=== PATIENT | male | born 1985 | race Caucasian/White ===

== ENCOUNTER 2017-08-26 20:17 | Emergency (ER) | payer SELFPAY ==
[2017-08-26 21:34] LABS: BASOPHILS 0.2 % (0-2); HEMATOCRIT 39.9 % (42.0-54.0); HEMOGLOBIN 13.7 g/dL (13.5-17.5); IMMATURE GRANULOCYTES 0.2 % (0-5); LYMPHOCYTES 18.8 % (15-50); MCH 31.4 pg (26.0-34.0); MCHC 34.3 g/dL (31.0-37.0); MCV 91.5 fL (80.0-100.0); MONOCYTES 10.1 % (2-11); NEUTROPHILS 69.7 % (40-80); PLATELET COUNT 233 10x3/uL (130-400); RBC 4.36 10x6/uL (4.20-6.10); RDW 13.6 % (11.5-14.5); WBC 10.4 10x3/uL (4.8-10.8)
== END 2017-08-26 22:30 | disposition left against medical advice (07) ==
LOC: D.ER 20:17
PROVIDERS: Family Medicine
DX: R51 Headache (principal)

== ENCOUNTER 2017-11-13 11:18 | Emergency (ER) | payer MEDICAID ==
[~2017-11-13] VITALS: Ht 177.8 cm; Wt 72.7 kg
[2017-11-13 11:41] VITALS: BP 110/68; Ht 177.8 cm; Wt 72.7 kg
== END 2017-11-13 15:06 | disposition home or self-care (01) ==
LOC: D.ER 11:18
DX: L02.91 Cutaneous abscess, unspecified (principal)

== ENCOUNTER 2018-01-05 05:58 | Emergency (ER) | payer MEDICAID ==
[~2018-01-05] VITALS: Ht 177.8 cm; Wt 72.7 kg
[2018-01-05 06:03] VITALS: Ht 177.8 cm; Wt 72.7 kg
[2018-01-05] MEDS ORDERED: CLEOCIN HCL300 MG PO (06:29)
[2018-01-05] MEDS ORDERED: HYDROCODON-ACE1 EAC7 PO (06:30)
[2018-01-05 06:47] VITALS: BP 121/77
[2018-01-06] MEDS ORDERED: TORADOL10 MG PO (15:59)
== END 2018-01-05 06:47 | disposition home or self-care (01) ==
LOC: D.ER 05:58
DX: K11.5 Sialolithiasis (principal); H93.12 Tinnitus, left ear; F17.200 Nicotine dependence, unspecified, uncomplicated

== ENCOUNTER 2018-01-06 12:28 | Emergency (ER) | payer MEDICAID ==
[~2018-01-06] VITALS: Ht 177.8 cm; Wt 72.7 kg
[~2018-01-06 12:28] MED LIST: CLEOCIN HCL300 MG PO; HYDROCODON-ACE1 EAC7 PO
[2018-01-06 12:55] VITALS: Ht 177.8 cm; Wt 72.7 kg
[2018-01-06 13:25] LABS: BASOPHILS 0.2 % (0-2); EOSINOPHILS 2.9 % (0-7); HEMATOCRIT 42.7 % (42.0-54.0); HEMOGLOBIN 14.2 g/dL (13.5-17.5); IMMATURE GRANULOCYTES 0.1 % (0-5); LYMPHOCYTES 29.3 % (15-50); MCH 30.9 pg (26.0-34.0); MCHC 33.3 g/dL (31.0-37.0); MCV 92.8 fL (80.0-100.0); MEAN PLATELET VOLUME 9.7 fL (7.4-10.4); MONOCYTES 11.3 % (2-11); NEUTROPHILS 56.2 % (40-80); PLATELET COUNT 237 10x3/uL (130-400); RDW 13.3 % (11.5-14.5); WBC 8.7 10x3/uL (4.8-10.8)
[2018-01-06 13:37] LABS: ALBUMIN 3.7 g/dL (3.4-5.0); ALKALINE PHOSPHATASE 68 U/L (46-116); ALT (SGPT) 134 U/L (10-68); BILIRUBIN - TOTAL 0.27 mg/dL (0.2-1.3); CALC OSMOLALITY 271 mosm/kg (275-300); CALCIUM 9.1 mg/dL (8.5-10.1); CARBON DIOXIDE 33.1 mmol/L (21.0-32.0); CHLORIDE - SERUM 100 mmol/L (98-107); CREATININE - SERUM 0.9 mg/dL (0.6-1.3); GLUCOSE 92 mg/dL (74-106); POTASSIUM - SERUM 3.8 mmol/L (3.5-5.1); PROTEIN - SERUM 7.9 g/dL (6.4-8.2); SODIUM 137 mmol/L (136-145); UREA NITROGEN 7 mg/dL (7-18); eGFR NON AFRICAN AMERICAN > 90 mL/min (90-120)
[2018-01-06] MEDS ORDERED: TORADOL10 MG PO (15:59)
[2018-01-06 17:26] VITALS: BP 142/86
== END 2018-01-06 17:23 | disposition home or self-care (01) ==
LOC: D.ER 12:28
PROVIDERS: Family Medicine
DX: K04.7 Periapical abscess without sinus (principal); M54.2 Cervicalgia

== ENCOUNTER 2019-04-29 16:21 | Inpatient (IN) | payer SELFPAY ==
[~2019-04-29] VITALS: Ht 177.8 cm; Wt 75.0 kg
[~2019-04-29 16:21] MED LIST changes: +TORADOL10 MG PO
[2019-04-29 17:05] LABS: BASOPHILS 0.2 % (0-2); EOSINOPHILS 0.2 % (0-7); HEMOGLOBIN 15.9 g/dL (13.5-17.5); IMMATURE GRANULOCYTES 0.8 % (0-5); LYMPHOCYTES 12.8 % (15-50); MCH 30.9 pg (26.0-34.0); MCHC 33.8 g/dL (31.0-37.0); MCV 91.4 fL (80.0-100.0); MEAN PLATELET VOLUME 9.3 fL (7.4-10.4); MONOCYTES 7.4 % (2-11); NEUTROPHILS 78.6 % (40-80); PLATELET COUNT 239 10x3/uL (130-400); RBC 5.14 10x6/uL (4.20-6.10); RDW 14.8 % (11.5-14.5); WBC 14.4 10x3/uL (4.8-10.8)
[2019-04-29 17:19] LABS: ANION GAP 12.4 mmol/L (8-16); CALCIUM 9.1 mg/dL (8.5-10.1); CARBON DIOXIDE 26.3 mmol/L (21.0-32.0); CREATININE - SERUM 1.4 mg/dL (0.6-1.3); POTASSIUM - SERUM 3.7 mmol/L (3.5-5.1)
[2019-04-29 17:24] LABS: APPEARANCE CLEAR (CLEAR); COLOR YELLOW (YELLOW); GLUCOSE NEGATIVE (NEGATIVE); KETONE MODERATE mg/dL (NEGATIVE); NITRITE NEGATIVE (NEGATIVE); PROTEIN 1+ mg/dL (NEGATIVE)
[2019-04-29 17:25] LABS: BILIRUBIN NEGATIVE (NEGATIVE)
[2019-04-29 17:26] LABS: ALBUMIN 3.5 g/dL (3.4-5.0); BILIRUBIN - TOTAL 0.33 mg/dL (0.2-1.3); PROTEIN - SERUM 8.1 g/dL (6.4-8.2)
[2019-04-29 18:24] LABS: INR 1.25 (0.85-1.17); PROTIME 15.2 SECONDS (11.6-15.0)
[2019-04-29 18:25] LABS: APTT 44.8 SECONDS (22.8-39.4)
[2019-04-29 18:38] VITALS: BP 114/60
[2019-04-29 18:39] LABS: CREATINE KINASE 103 UL (21-232)
[2019-04-29 18:48] LABS: TROPONIN-I < 0.017 ng/mL (0.000-0.060)
--- NOTE | 2019-04-29 19:13 | NUR ---
PT RETURNED FROM RADIOLOGY.
[2019-04-29 19:30] VITALS: BP 111/62
--- NOTE | 2019-04-29 19:54 | NUR ---
PT TO RADIOLOGY
[2019-04-29 22:36] VITALS: BP 109/71; Ht 177.8 cm; Wt 75.0 kg
[2019-04-30 06:15] LABS: BASOPHILS 0.2 % (0-2); EOSINOPHILS 0.2 % (0-7); HEMATOCRIT 41.9 % (42.0-54.0); IMMATURE GRANULOCYTES 0.2 % (0-5); LYMPHOCYTES 17.9 % (15-50); MCH 30.5 pg (26.0-34.0); MCHC 33.4 g/dL (31.0-37.0); MCV 91.3 fL (80.0-100.0); MONOCYTES 10.1 % (2-11); NEUTROPHILS 71.4 % (40-80); PLATELET COUNT 240 10x3/uL (130-400); RBC 4.59 10x6/uL (4.20-6.10); WBC 12.8 10x3/uL (4.8-10.8)
[2019-04-30 06:47] LABS: ANION GAP 9.7 mmol/L (8-16); CALCIUM 7.9 mg/dL (8.5-10.1); CARBON DIOXIDE 27.1 mmol/L (21.0-32.0); CREATININE - SERUM 1.2 mg/dL (0.6-1.3); MAGNESIUM - SERUM 1.9 mg/dL (1.8-2.4); PHOSPHOROUS 2.4 mg/dL (2.5-4.9); POTASSIUM - SERUM 3.8 mmol/L (3.5-5.1)
[2019-04-30 08:46] VITALS: BP 140/85
--- NOTE | 2019-04-30 10:26 | NUR ---
MEDCIATED WITH MORPHINE AT THIS TIME FOR C/O PAIN RATING 7/10 ON PAIN SCALE. C C/L IN REACH AT BEDSIDE.
[2019-04-30 12:38] VITALS: BP 126/79
[2019-04-30 14:49] VITALS: BP 123/76
[2019-04-30 14:57] LABS: UDS - AMPHET POSITIVE QUAL (NEGATIVE); UDS - BARB NEGATIVE QUAL (NEGATIVE); UDS - BENZO NEGATIVE QUAL (NEGATIVE); UDS - COCAINE NEGATIVE QUAL (NEGATIVE); UDS - OPIATE POSITIVE QUAL (NEGATIVE); UDS - PCP NEGATIVE QUAL (NEGATIVE); UDS - THC POSITIVE QUAL (NEGATIVE)
--- NOTE | 2019-04-30 17:56 | NUR ---
I have reviewed this patient and I concur with the Shift Assessment completed by the Licensed Practical Nurse today this shift.
[2019-04-30 20:00] VITALS: BP 138/67
[2019-05-01] VITALS: BP 157/76
[2019-05-01 04:00] VITALS: BP 107/70
--- NOTE | 2019-05-01 06:37 | NUR ---
ASSESSED AT THE BEGINNING OF THE SHIFT. HE IS ALERT AND ORIENTED, ABLE TO VERBALIZE NEEDS. AT THAT TIME HE WAS C/O SEVERE PAIN AND BURNING IN HIS THROAT. HE WAS GIVEN PAIN AND NAUSEA MEDS AT THAT TIME WHICH SEEMS TO TAKE CARE OF IT. GIRL FRIEND BROUGHT FOOD AND THEN DURING THE NIGHT SHE SLEP IN THE BED AND WAS THEN RELOCATED TO THE CHAIR. NO COMPLAINTS OF THIS TIME THIS MORNING.
[2019-05-01 07:21] LABS: CALC OSMOLALITY 279 mosm/kg (275-300); CALCIUM 8.1 mg/dL (8.5-10.1); CARBON DIOXIDE 28.2 mmol/L (21.0-32.0); CHLORIDE - SERUM 106 mmol/L (98-107); CREATININE - SERUM 1.1 mg/dL (0.6-1.3); GLUCOSE 82 mg/dL (74-106); MAGNESIUM - SERUM 2.2 mg/dL (1.8-2.4); SODIUM 142 mmol/L (136-145); UREA NITROGEN 6 mg/dL (7-18); VANCOMYCIN - TROUGH 8.2 ug/mL (10.0-20.0); eGFR NON AFRICAN AMERICAN 81 mL/min (90-120)
[2019-05-01 07:23] LABS: PHOSPHOROUS 3.5 mg/dL (2.5-4.9); POTASSIUM - SERUM 3.2 mmol/L (3.5-5.1)
[2019-05-01 07:51] LABS: HEMATOCRIT 39.4 % (42.0-54.0); HEMOGLOBIN 13.5 g/dL (13.5-17.5); MCHC 34.3 g/dL (31.0-37.0); MCV 90.4 fL (80.0-100.0); NEUTROPHILS 52.5 % (40-80); PLATELET COUNT 203 10x3/uL (130-400); RBC 4.36 10x6/uL (4.20-6.10); RDW 15.5 % (11.5-14.5)
[2019-05-01 07:52] LABS: WBC 7.4 10x3/uL (4.8-10.8)
[2019-05-01 08:30] VITALS: BP 134/83
[2019-05-01 12:53] VITALS: BP 125/83
--- NOTE | 2019-05-01 15:29 | MORECARE ---
CASE MANAGEMENT DISCHARGE SUMMARY PATIENT: LASHAWN MORELOS UNIT: [id number] ADM DATE: 04/29/19 AGE: 34 : 85 SEX: M ROOM/BED: D.2209 AUTHOR: MARY HOWARD PHYSICIAN: REFERRING PHYSICIAN: KAYLA DOUGHERTY MD DATE OF SERVICE: 05/01/19 Discharge Plan Patient Name: [facility]ASHAWN MORELOS [facility] [facility] 1985 Planned Disposition: Anticipated Discharge Date: Discharge Date: Expected LOS: Initial Reviewer: [email or web address] Initial Review Date: 05/01/2019 Generated: 05/01/19 4:28 pm Comments DCP- Discharge Planning Updated by [email or web address]: Nena Inman on 05/01/19 2:[address] Patient Name: LASHAWN MORELOS Admission Status: ER Accout number: [id number] Admission Date: 04-29-2019 : 1985 Admission Diagnosis: Attending: KAYLA DE LA CRUZ Current LOS: 2 Anticipated DC Date: Planned Disposition: Primary Insurance: UNINSURED DISCOUNT PLAN Discharge Planning Comments: CM ATTEMPTED TO MEET WITH PATIENT TWO DIFFERENT TIMES. PATIENT EXTREMELY DROWSY. CM WILL ATTEMPT TO ASSESS PATIENT AGAIN AT A LATER TIME. Manager Adobe: Nena Inman Patient Name: LASHAWN MORELOS Page [phone] at 1529 All edits/amendments must be made on the electronic document DICTATION DATE: 05/01/191527 BULL DRIVER: MELANIE 05/01/191527 RPT#: [id number] DC DATE: STATUS: ADM IN [facility] [address] [place] [address] END OF REPORT
--- NOTE | 2019-05-01 17:04 | NUR ---
I have reviewed this patient and I concur with the Shift Assessment completed by the Licensed Practical Nurse today this shift.
[2019-05-01 17:22] VITALS: BP 136/66
[2019-05-01 20:00] VITALS: BP 134/88
--- NOTE | 2019-05-02 01:49 | NUR ---
PT RESTING IN BED. NO SIGNS OF DISTRESS. BREATHING EVEN AND UNLABORED. RESITED IV LT UPPER ARM 20G ATTEMPTS X1. PT TOLERATED WELL. SKIN CLEAN DRY AND INTACT. BOWEL SOUNDS ACTIVE. NO LOWER LEG SWELLING PRESENT. WILL CONTINUE PLAN OF CARE. CALL LIGHT IN REACH. BED LOWERED AND LOCKED.
--- NOTE | 2019-05-02 03:56 | NUR ---
I have reviewed this patient and I concur with the Shift Assessment completed by the Licensed Practical Nurse today this shift.
[2019-05-02 04:00] VITALS: BP 143/86
[2019-05-02 07:54] LABS: BASOPHILS 0.4 % (0-2); EOSINOPHILS 3.7 % (0-7); HEMATOCRIT 42.9 % (42.0-54.0); HEMOGLOBIN 14.3 g/dL (13.5-17.5); IMMATURE GRANULOCYTES 0.1 % (0-5); LYMPHOCYTES 28.5 % (15-50); MCH 30.6 pg (26.0-34.0); MCHC 33.3 g/dL (31.0-37.0); MCV 91.7 fL (80.0-100.0); MEAN PLATELET VOLUME 9.8 fL (7.4-10.4); MONOCYTES 9.8 % (2-11); NEUTROPHILS 57.5 % (40-80); RBC 4.68 10x6/uL (4.20-6.10); RDW 15.3 % (11.5-14.5); WBC 7.8 10x3/uL (4.8-10.8)
[2019-05-02 07:55] LABS: PLATELET COUNT 275 10x3/uL (130-400)
[2019-05-02 08:19] VITALS: BP 120/89
[2019-05-02 08:23] LABS: CALC OSMOLALITY 282 mosm/kg (275-300); CALCIUM 8.3 mg/dL (8.5-10.1); CARBON DIOXIDE 27.6 mmol/L (21.0-32.0); CHLORIDE - SERUM 105 mmol/L (98-107); CREATININE - SERUM 0.9 mg/dL (0.6-1.3); GLUCOSE 90 mg/dL (74-106); PHOSPHOROUS 2.7 mg/dL (2.5-4.9); SODIUM 143 mmol/L (136-145); UREA NITROGEN 6 mg/dL (7-18); eGFR NON AFRICAN AMERICAN > 90 mL/min (90-120)
--- NOTE | 2019-05-02 09:17 | NUR ---
PT RESTING. RR EVEN AND UN LABORED. DENIES NEEDS OR PAIN AT THIS TIME. BED IN LOWEST POSITION. CALL LIGHT WITHIN REACH. WILL CONTINUE TO MONITOR.
--- NOTE | 2019-05-02 12:06 | NUR ---
PT AMBULATING IN HALLWAY WITH STEADY GAIT.
--- NOTE | 2019-05-02 12:09 | NUR ---
I have reviewed this patient and I concur with the Shift Assessment completed by the Licensed Practical Nurse today this shift.
[2019-05-02] MEDS ORDERED: MUCINEX600 MG PO (12:12)
[2019-05-02] MEDS ORDERED: TESSALON PERLE100 MG PO (12:12)
[2019-05-02] MEDS ORDERED: ZITHROMAX500 MG PO (12:13)
[2019-05-02] MEDS ORDERED: SINGULAIR10 MG PO (12:13)
[2019-05-02] MEDS ORDERED: LEVAQUIN750 MG PO (12:14)
[2019-05-02] MEDS ORDERED: ALBUTEROL SULF8.5 GM INH (12:14)
--- NOTE | 2019-05-02 13:11 | MORECARE ---
CASE MANAGEMENT DISCHARGE SUMMARY PATIENT: LASHAWN MORELOS UNIT: [id number] ADM DATE: 04/29/19 AGE: 34 : 85 SEX: M ROOM/BED: D.2209 AUTHOR: MARY HOWARD PHYSICIAN: REFERRING PHYSICIAN: KAYLA DOUGHERTY MD DATE OF SERVICE: 05/02/19 Discharge Plan Patient Name: LASHAWN MORELOS [facility] [facility] 1985 Planned Disposition: Anticipated Discharge Date: Discharge Date: Expected LOS: Initial Reviewer: [email or web address] Initial Review Date: 05/02/2019 Generated: 05/02/19 2:11 pm Comments DCP- Discharge Planning Updated by [email or web address]: Nena Inman on 05/01/19 2:[address] Patient Name: LASHAWN MORELOS Admission Status: ER Accout number: [id number] Admission Date: 04-29-2019 : 1985 Admission Diagnosis: Attending: KAYLA DE LA CRUZ Current LOS: 2 Anticipated DC Date: Planned Disposition: Primary Insurance: UNINSURED DISCOUNT PLAN Discharge Planning Comments: CM ATTEMPTED TO MEET WITH PATIENT TWO DIFFERENT TIMES. PATIENT EXTREMELY DROWSY. CM WILL ATTEMPT TO ASSESS PATIENT AGAIN AT A LATER TIME. Packaging Sales Representative: Nena Inman Last DP export: 05/01/19 2:29 Patient Name: LASHAWN MORELOS Page [phone] at 1311 All edits/amendments must be made on the electronic document DICTATION DATE: 05/02/19 1311 [employer]: MELANIE 05/02/19 1311 RPT#: [id number] DC DATE: STATUS: ADM IN [facility] [address] [place] [address] END OF REPORT
--- NOTE | 2019-05-02 13:18 | MORECARE ---
CASE MANAGEMENT DISCHARGE SUMMARY PATIENT: LASHAWN MORELOS UNIT: [id number] ADM DATE: 04/29/19 AGE: 34 : 85 SEX: M ROOM/BED: D.2209 AUTHOR: MARY HOWARD PHYSICIAN: REFERRING PHYSICIAN: KAYLA DOUGHERTY MD DATE OF SERVICE: 05/02/19 Discharge Plan Patient Name: LASHAWN MORELOS Facility: [facility]:[place] : 1985 Planned Disposition: Anticipated Discharge Date: Discharge Date: Expected LOS: Initial Reviewer: [email or web address] Initial Review Date: 05/02/2019 Generated: 05/02/19 2:18 pm Comments DCP- Discharge Planning Updated by [email or web address]: Nena Inman on 05/02/19 12:[address] Patient Name: LASHAWN MORELOS Admission Status: ER Accout number: [id number] Admission Date: 04-29-2019 : 1985 Admission Diagnosis:SEPSIS, UNSPECIFIED ORGANISM Attending: KAYLA DE LA CRUZ Current LOS: 3 Anticipated DC Date: Planned Disposition: Primary Insurance: UNINSURED DISCOUNT PLAN Discharge Planning Comments: CM met with patient at bedside after explaining CM role and obtaining verbal consent. CM discussed availability / needs of home health, REHAB and medical equipment. PATIENT PLANS TO DC TO HOME. I GAVE HIM A GOOD RX CARD TO HELP WITH LOWERING THE COST OF HIS PRESCRIPTIONS SINCE HE DOES NOT HAVE INSURANCE. PATIENT TO DC TODAY. Theatrical Agent: Nena Inman DCP- Discharge Planning Updated by [email or web address]: Nena Inman on 05/01/19 2:[address] Patient Name: LASHAWN MORELOS Admission Status: ER Accout number: [id number] Admission Date: 04-29-2019 : 1985 Admission Diagnosis: Attending: KAYLA DE LA CRUZ Current LOS: 2 Anticipated DC Date: Planned Disposition: Primary Insurance: UNINSURED DISCOUNT PLAN Discharge Planning Comments: CM ATTEMPTED TO MEET WITH PATIENT TWO DIFFERENT TIMES. PATIENT EXTREMELY DROWSY. CM WILL ATTEMPT TO ASSESS PATIENT AGAIN AT A LATER TIME. Theatrical Agent: Nena Inman Last DP export: 05/02/19 12:11 Patient Name: LASHAWN MORELOS Page [phone] at 1318 All edits/amendments must be made on the electronic document DICTATION DATE: 05/02/191316 AQUACULTURAL WORKER SUPERVISOR: MELANIE 05/02/191316 RPT#: [id number] DC DATE: STATUS: ADM IN [facility] [address] [place] [address] END OF REPORT
[2019-05-02 14:29] VITALS: BP 141/87
--- NOTE | 2019-05-02 14:57 | NUR ---
D/C INSTRUCTIONS REVIEWED. PT VERBALIZED UNDERSTANDING AND DENIES FURTHER QUESTIONS AT THIS TIME. IV D/C WITH CATHETER TIP INTACT. PT REFUSED WHEELCHAIR. LEFT WITH ALL BELONGINGS TO PERSONAL VEHICLE.
--- NOTE | 2019-05-02 15:26 | MORECARE ---
CASE MANAGEMENT DISCHARGE SUMMARY PATIENT: LASHAWN MORELOS UNIT: [id number] ADM DATE: 04/29/19 AGE: 34 : 85 SEX: M ROOM/BED: D.2209 AUTHOR: MARY HOWARD PHYSICIAN: REFERRING PHYSICIAN: KAYLA DOUGHERTY MD DATE OF SERVICE: 05/02/19 Discharge Plan Patient Name: LASHAWN MORELOS Facility: [facility]:[place] : 1985 Planned Disposition: Anticipated Discharge Date: Discharge Date: 05/02/2019 Expected LOS: Initial Reviewer: [email or web address] Initial Review Date: 05/02/2019 Generated: 05/02/19 4:26 pm Comments DCP- Discharge Planning Updated by [email or web address]: Nena Inman on 05/02/19 12:[address] Patient Name: LASHAWN MORELOS Admission Status: ER Accout number: [id number] Admission Date: 04-29-2019 : 1985 Admission Diagnosis:SEPSIS, UNSPECIFIED ORGANISM Attending: KAYLA DE LA CRUZ Current LOS: 3 Anticipated DC Date: Planned Disposition: Primary Insurance: UNINSURED DISCOUNT PLAN Discharge Planning Comments: CM met with patient at bedside after explaining CM role and obtaining verbal consent. CM discussed availability / needs of home health, REHAB and medical equipment. PATIENT PLANS TO DC TO HOME. I GAVE HIM A GOOD RX CARD TO HELP WITH LOWERING THE COST OF HIS PRESCRIPTIONS SINCE HE DOES NOT HAVE INSURANCE. PATIENT TO DC TODAY. Web Marketing Coordinator: Nena Inman DCP- Discharge Planning Updated by [email or web address]: Nena Inman on 05/01/19 2:[address] Patient Name: LASHAWN MORELOS Admission Status: ER Accout number: [id number] Admission Date: 04-29-2019 : 1985 Admission Diagnosis: Attending: KAYLA DE LA CRUZ Current LOS: 2 Anticipated DC Date: Planned Disposition: Primary Insurance: UNINSURED DISCOUNT PLAN Discharge Planning Comments: CM ATTEMPTED TO MEET WITH PATIENT TWO DIFFERENT TIMES. PATIENT EXTREMELY DROWSY. CM WILL ATTEMPT TO ASSESS PATIENT AGAIN AT A LATER TIME. Web Marketing Coordinator: Nena Inman Last DP export: 05/02/19 12:18 Patient Name: LASHAWN MORELOS Page [phone] at 1526 All edits/amendments must be made on the electronic document DICTATION DATE: 05/02/191525 COOK DINNER: MELANIE 05/02/191525 RPT#: [id number] [place] DATE:05/02/19 STATUS: DIS IN [facility] [address] [place] [address] END OF REPORT
== END 2019-05-02 15:04 | disposition home or self-care (01) | DRG 871 ==
LOC: D.ER 16:21 → D.MS 20:52
PROVIDERS: Family Medicine; ADMIT Family Medicine Adult Medicine; ATTEND Family Medicine Adult Medicine
DX: A41.9 Sepsis, unspecified organism (principal); J18.9 Pneumonia, unspecified organism; E87.1 Hypo-osmolality and hyponatremia; N17.9 Acute kidney failure, unspecified; F17.203 Nicotine dependence unspecified, with withdrawal; R00.0 Tachycardia, unspecified; F19.10 Other psychoactive substance abuse, uncomplicated

== ENCOUNTER 2020-01-31 02:52 | Emergency (ER) | payer OTHER ==
[~2020-01-31] VITALS: Ht 177.8 cm; Wt 79.5 kg
[~2020-01-31 02:52] MED LIST changes: +ALBUTEROL SULF8.5 GM INH; +LEVAQUIN750 MG PO; +MUCINEX600 MG PO; +SINGULAIR10 MG PO; +TESSALON PERLE100 MG PO; +ZITHROMAX500 MG PO
[2020-01-31 03:03] VITALS: Ht 177.8 cm; Wt 79.5 kg
[2020-01-31 03:27] LABS: BASOPHILS 0.5 % (0-2); HEMATOCRIT 45.5 % (42.0-54.0); HEMOGLOBIN 15.2 g/dL (13.5-17.5); IMMATURE GRANULOCYTES 0.2 % (0-5); LYMPHOCYTES 19.8 % (15-50); MCH 31.1 pg (26.0-34.0); MCHC 33.4 g/dL (31.0-37.0); MEAN PLATELET VOLUME 9.2 fL (7.4-10.4); MONOCYTES 8.8 % (2-11); NEUTROPHILS 68.7 % (40-80); RBC 4.89 10x6/uL (4.20-6.10); RDW 15.2 % (11.5-14.5); WBC 10.7 10x3/uL (4.8-10.8)
[2020-01-31 03:30] LABS: PLATELET COUNT 423 10x3/uL (130-400)
[2020-01-31 03:42] LABS: CALC OSMOLALITY 277 mosm/kg (275-300); CALCIUM 8.7 mg/dL (8.5-10.1); CHLORIDE - SERUM 105 mmol/L (98-107); CREATININE - SERUM 1.3 mg/dL (0.6-1.3); GLUCOSE 89 mg/dL (74-106); POTASSIUM - SERUM 3.6 mmol/L (3.5-5.1); SODIUM 140 mmol/L (136-145); UREA NITROGEN 12 mg/dL (7-18); eGFR NON AFRICAN AMERICAN 67 mL/min (90-120)
[2020-01-31 03:51] LABS: ALBUMIN 3.5 g/dL (3.4-5.0); ALKALINE PHOSPHATASE 36 U/L (30-120); ALT (SGPT) 36 U/L (10-68); AMYLASE - SERUM 44 U/L (25-115); LIPASE 127 U/L (73-393); PROTEIN - SERUM 7.2 g/dL (6.4-8.2); TROPONIN-I < 0.017 ng/mL (0.000-0.060)
[2020-01-31 05:51] LABS: BILIRUBIN NEGATIVE (NEGATIVE); GLUCOSE NEGATIVE (NEGATIVE); KETONE SMALL mg/dL (NEGATIVE); NITRITE NEGATIVE (NEGATIVE); UROBILINOGEN NORMAL (NORMAL)
[2020-01-31 05:52] LABS: RED CELLS - URINE RARE /hpf (0-5)
[2020-01-31 05:53] LABS: BACTERIA FEW /hpf (NEGATIVE)
[2020-01-31 06:00] LABS: UDS - AMPHET POSITIVE QUAL (NEGATIVE); UDS - BARB NEGATIVE QUAL (NEGATIVE); UDS - BENZO NEGATIVE QUAL (NEGATIVE); UDS - COCAINE NEGATIVE QUAL (NEGATIVE); UDS - OPIATE POSITIVE QUAL (NEGATIVE); UDS - PCP NEGATIVE QUAL (NEGATIVE); UDS - THC POSITIVE QUAL (NEGATIVE)
[2020-01-31] MEDS ORDERED: CHRONULAC30 ML PO (06:34)
[2020-01-31 06:42] VITALS: BP 145/99
== END 2020-01-31 06:43 | disposition home or self-care (01) ==
LOC: D.ER 02:52
PROVIDERS: Family Medicine
DX: K59.00 Constipation, unspecified (principal); R10.11 Right upper quadrant pain

== ENCOUNTER 2020-11-29 20:56 | Emergency (ER) | payer OTHER ==
[~2020-11-29] VITALS: Ht 177.8 cm; Wt 72.7 kg
[~2020-11-29 20:56] MED LIST changes: +ARTHROTEC 501 TAB.EC PO; +CHRONULAC30 ML PO
[2020-11-29 21:22] VITALS: BP 132/91; Ht 177.8 cm; Wt 72.7 kg
[2020-11-29] MEDS ORDERED: HYDROCODON-ACE1 EA10 PO (23:55)
== END 2020-11-30 06:23 | disposition home or self-care (01) ==
LOC: D.ER 20:56
DX: T14.8XXA Other injury of unspecified body region, initial encounter (principal); S51.012A Laceration without foreign body of left elbow, initial encounter; V29.9XXA Motorcycle rider (driver) (passenger) injured in unspecified traffic accident, initial encounter